=== PATIENT | female | born 1985 | race Caucasian/White ===

== ENCOUNTER 2021-10-20 09:05 | Emergency (ER) | payer BC ==
[~2021-10-20] VITALS: Ht 165.1 cm; Wt 50.0 kg
[2021-10-20] MEDS ORDERED: HYDROcodone/APAP 5/325MG 1 TAB TABLET PO ONE (10:00)
[2021-10-20] MEDS ORDERED: ceFAZolin SODIUM IV Push 1 GM VIAL. IVP ONE (10:00)
[2021-10-20] MEDS ORDERED: AMOXICILLIN/K CLAV 875/125MG TABLET. PO ONE (10:00)
[2021-10-20 10:11] VITALS: BP 134/68
[2021-10-20] MEDS ORDERED: NEOMY/BACITR/POLYMYXIN OINT PACKET. TP ONE (10:30)
--- NOTE | 2021-10-20 10:44 | RAD ---
XR HUMERUS_LT 2 VIEWS, XR HAND_LEFT 3 VIEWS, XR LT WRIST 3VIEWS, XR FOREARM_LEFT 2 VIEWS DATE: 10/20/2021 9:56 AM INDICATION: Dog bite attack, left forearm deformity, pain humerus wrist hands and finge COMPARISON: None. FINDINGS: Bones: There is no evidence of acute fracture or dislocation. Joints: The joint spaces are normal. Miscellaneous: No radiopaque foreign bodies. Forearm soft tissue gas is present, likely posttraumatic . IMPRESSION: No acute fracture or radiopaque foreign body in the left upper extremity radiographs which include th e humerus, forearm, wrist, and hand. Electronically signed by: Florencio Delarosa MD (10/20/2021 10:42 AM) [id number]
[2021-10-20] MEDS ORDERED: DIPHTH,PERTUSS(ACELL),TET TOX 0.5 ML DISP.SYRIN. VAX IM ONE (11:00)
[2021-10-20] MEDS ORDERED: RABIES VIRUS VACC PF 2.5 UNIT / 1 ML VIAL. VAX IM ONE (11:15)
[2021-10-20] MEDS ORDERED: RABIES IMMUNE GLOBULIN PF 300 UNIT/ML 5ML VIAL VAX IM ONE ×3 (11:15→15:15)
[2021-10-20] MEDS ORDERED: LIDOCAINE 2% Multi-Dose 20 ML VIAL. ONE (13:28)
[2021-10-20] MEDS ORDERED: LIDOCAINE 2% Multi-Dose 20 ML VIAL. IJ ONE (13:30)
[2021-10-20] MEDS ORDERED: AMOX1TAB61 PO (15:25)
[2021-10-20] MEDS ORDERED: IBUP-1007 PO (15:25)
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
== END 2021-10-20 15:30 | disposition home or self-care (01) ==
LOC: ER 09:05
DX: S01.83XA Puncture wound without foreign body of other part of head, initial encounter (principal); S51.031A Puncture wound without foreign body of right elbow, initial encounter; S51.832A Puncture wound without foreign body of left forearm, initial encounter; S71.132A Puncture wound without foreign body, left thigh, initial encounter; S81.832A Puncture wound without foreign body, left lower leg, initial encounter; Z20.3 Contact with and (suspected) exposure to rabies; W54.0XXA Bitten by dog, initial encounter; Y93.89 Activity, other specified; Y92.89 Other specified places as the place of occurrence of the external cause; Y99.8 Other external cause status
CPT/HCPCS: 12005; 73060; 73090; 73120; 73130; 90375; 90471; 90472; 90675; 90715; 96372; 96374; 99284; J0690

== ENCOUNTER 2021-10-23 09:18 | Emergency (ER) | payer BC ==
[~2021-10-23] VITALS: Ht 165.1 cm; Wt 49.0 kg
[~2021-10-23 09:18] MED LIST: AMOX1TAB61 PO; IBUP-1007 PO
--- NOTE | 2021-10-23 10:19 | PHYS DOC ---
Past Medical History Past Surgical History: , Other Additional Past Surgical Histo: Hernia and cataracts Smoking Status: Never Smoker Alcohol Use: None Adult General Chief Complaint Chief Complaint: MULTIPLE COMPLAINTS HPI HPI The patient is a 35-year-old female who presents for her second rabies vaccination following superficial dog bites all over her body sustained a few days ago. Patient was seen here at the time of her injury, injuries which re quired it were loosely approximated with suture, she received her first dose of rabies vaccine along with rabies immunoglobulin, and was discharged with Augmentin which she has been taking as prescribed. She states discomfort is well controlled to all sites and wounds are healing well. Review of Systems Review of Systems A 12 point review of systems was completed and was negative except where noted in HPI above. Current Medications Current Medications Current Medications Medications (Trade) Dose Ordered Sig/Jules Start Time Stop Time Status Last Admin Dose Admin Rabies Vaccine (Imovax Rabies 2.5 Unit / ml) 1 ml ONCE ONCE 10/23/21 10:30 10/23/21 10:31 Allergies Allergies Allergies Coded Allergies Type Severity Reaction Last Updated Verified No Known Drug Allergies 10/20/21 No Physical Exam Physical Exam 35-year-old female appearing nontoxic and in no acute distress. Head is normocephalic and atraumatic. Neck is supple and nontender. Oropharynx is moist. Lungs are clear to auscultation at all stations. There is a normal S1 and S2 without rubs or gallops and capillary refill is appropriate, less than 2 seconds globally. Abdomen is soft, nontender and nondistended. Skin is warm and dry without cyanosis, clubbing or edema. Psychiatrically, the patient demonstrates appropriate mood and affect and is alert. Evaluation of the extremities reveals BUEs and BLEs neurovascularly intact distally with strength 5 out of 5, sensation intact to light touch in all nerve distributions, radial, DP and PT pulses 2+ equal bilaterally, capillary refill less than 2 seconds, hands and feet warm and well-perfused. No dependent peripheral edema distally. No calf tenderness or swelling bilaterally. Homans test is negative bilaterally. There are numerous punctate dog bites with a few superficial lacerations located all over the arms and legs, at multiple sites. All are without surrounding erythema, without drainage and without tenderness to palpation. All appear to be healing appropriately. Current Patient Data Vital Signs Vital Signs Date Time Temp Pulse Resp B/P (MAP) Pulse Ox O2 Delivery O2 Flow Rate FiO2 10/23/21 09:27 98.4 103 16 124/67 (86) 99 Room Air 98.4 EKG EKG [] Radiology/Procedures Radiology/Procedures [] Course & Med Decision Making Course & Med Decision Making 35-year-old female here for rabies vaccination as scheduled. Taking Augmentin and dog bites appear to be healing appropriately. No evidence of emergency condition is identified. Will administer vaccine and discharge to follow-up as scheduled for the next vaccination in the series. All questions are answered. Dragon Disclaimer Dragon Disclaimer This electronic medical record was generated, in whole or in part, using a voice recognition dictation system. Departure Departure Impression: Primary Impression: Rabies, need for prophylactic vaccination against Additional Impression: Encounter for assessment of wound Disposition: HOME / SELF CARE / HOMELESS Condition: GOOD Referrals: GAEL ASCENCIO MD (PCP) Patient Instructions: Animal Bite Additional Instructions: Follow-up with us as scheduled for your next rabies vaccination and to have your sutures removed when it is time (they should be in for about 10 days in total). You may use ibuprofen and/or Tylenol as needed for any discomfort. You may apply Neosporin or other antibacterial ointment to your dog bites if you would like to prevent infection and continue the Augmentin oral antibiotic you were already prescribed to prevent infection. Return to the emergency department right away for worsening symptoms of any kind or with any other new symptoms of concern. Problem Qualifiers MARIETTA RAZA MD Oct 23, 2021 10:19
[2021-10-23] MEDS ORDERED: RABIES VIRUS VACC PF 2.5 UNIT / 1 ML VIAL. VAX IM ONE (10:30)
[2021-10-23 10:59] VITALS: BP 133/75
== END 2021-10-23 11:14 | disposition home or self-care (01) ==
LOC: ER 09:18
DX: S41.152A Open bite of left upper arm, initial encounter (principal); S41.151A Open bite of right upper arm, initial encounter; S81.852A Open bite, left lower leg, initial encounter; S81.851A Open bite, right lower leg, initial encounter; W54.0XXA Bitten by dog, initial encounter; Y93.89 Activity, other specified; Y92.89 Other specified places as the place of occurrence of the external cause; Y99.8 Other external cause status
CPT/HCPCS: 90471; 90675; 99283-25

== ENCOUNTER 2021-10-27 18:50 | Emergency (ER) | payer BC ==
[~2021-10-27] VITALS: Ht 165.1 cm; Wt 47.7 kg
[2021-10-27 19:05] VITALS: BP 115/61
[2021-10-27] MEDS ORDERED: RABIES VIRUS VACC PF 2.5 UNIT / 1 ML VIAL. VAX IM ONE (19:15)
--- NOTE | 2021-10-27 19:21 | PHYS DOC ---
Past Medical History Past Surgical History: , Other Additional Past Surgical Histo: Hernia and cataracts Smoking Status: Never Smoker Alcohol Use: None General Adult EDM: Chief Complaint: OTHER COMPLAINTS HPI: HPI: Patient is a 35 year old female presenting today for IBS vaccine. Patient had dog bites 10/20/2021 and has been coming to the ED for rabies vaccine. Today is day 7. She states her PCP will remove her stitches on Wednesday this week Review of Systems: Review of Systems: Constitutional: Visit for redness vaccine denies fever or chills. [] Musculoskeletal: Denies back pain or joint pain. [] Integument: Dog bites with stitches Neurologic: Denies headache, focal weakness or sensory changes. [] Psychiatric: Denies depression or anxiety. [] Heart Score: C/O Chest Pain: N/A Risk Factors: Risk Factors: DM, Current or recent (<one month) smoker, HTN, HLP, family history of CAD, obesity. Risk Scores: Score 0 - 3: 2.5% MACE over next 6 weeks - Discharge Home Score 4 - 6: 20.3% MACE over next 6 weeks - Admit for Clinical Observation Score 7 - 10: 72.7% MACE over next 6 weeks - Early Invasive Strategies Current Medications: Current Medications Medications (Trade) Dose Ordered Sig/Jules Start Time Stop Time Status Last Admin Dose Admin Rabies Vaccine (Imovax Rabies 2.5 Unit / ml) 1 ml ONCE ONCE 10/27/21 19:15 10/27/21 19:16 DC Allergies: Allergies: Allergies Coded Allergies Type Severity Reaction Last Updated Verified No Known Drug Allergies 10/20/21 No Physical Exam: PE: Constitutional: Well developed, well nourished, no acute distress, non-toxic appearance. [] Skin: Bilateral upper extremities, left lower extremity with well approximated bite sites with stitches no signs of infection Back: No tenderness, no CVA tenderness. [] Extremities: No tenderness, no cyanosis, no clubbing, ROM intact, no edema. [] Neurologic: Alert and oriented X 3, normal motor function, normal sensory function, no focal deficits noted. [] Psychologic: Affect normal, judgement normal, mood normal. [] EKG: EKG: [] Radiology/Procedures: Radiology/Procedures: [] Course & Med Decision Making: Course & Med Decision Making Pertinent Labs and Imaging studies reviewed. (See chart for details) This a 35-year-old female patient presented to the ED today for rabies vaccine from dog bite she sustained 10/20/2021, today is day seven. Vaccine administered. She has dog bite sites with stitches, she states her PCP will remove the stitches on Wednesday this week. Dragon Disclaimer: Dragon Disclaimer: This electronic medical record was generated, in whole or in part, using a voice recognition dictation system. Departure Departure Impression: Primary Impression: Rabies, need for prophylactic vaccination against Disposition: HOME / SELF CARE / HOMELESS Condition: STABLE Referrals: GAEL ASCENCIO MD (PCP) Follow up with ED or Ouptpatient department of [facility] for the last Rabies vaccine Patient Instructions: Rabies Vaccine suspension for injection Additional Instructions: Your last rabies vaccine is November 03, 2021. It can be done through [facility] outpatient area or through the emergency room. Follow up with your doctor on Wednesday to remove stitches. ANITA DONNELLY APRN Oct 27, 2021 19:21
== END 2021-10-27 19:27 | disposition home or self-care (01) ==
LOC: ER 18:50
DX: S41.152A Open bite of left upper arm, initial encounter (principal); S41.151A Open bite of right upper arm, initial encounter; S81.852A Open bite, left lower leg, initial encounter; K58.9 Irritable bowel syndrome, unspecified; W54.0XXA Bitten by dog, initial encounter; Y93.89 Activity, other specified; Y92.89 Other specified places as the place of occurrence of the external cause; Y99.8 Other external cause status
CPT/HCPCS: 90471; 90675; 99283-25

== ENCOUNTER → 2021-11-03 | Outpatient (CLI) | payer BC ==
[2021-10-27 19:05] VITALS: BP 115/61
[~2021-11-03] VITALS: Ht 167.6 cm; Wt 67.1 kg
[~2021-11-03] MED LIST changes: +RABIES VIRUS VACC PF 2.5 UNIT / 1 ML VIAL. VAX IM ONE
== END | disposition home or self-care (01) ==
LOC: OPS 16:47
PROVIDERS: ATTEND Nurse Practitioner Family
DX: S81.851D Open bite, right lower leg, subsequent encounter (principal); S81.852D Open bite, left lower leg, subsequent encounter; S41.152D Open bite of left upper arm, subsequent encounter; S41.151D Open bite of right upper arm, subsequent encounter; W54.0XXD Bitten by dog, subsequent encounter; X58.XXXD Exposure to other specified factors, subsequent encounter; Y93.89 Activity, other specified; Y92.89 Other specified places as the place of occurrence of the external cause
CPT/HCPCS: 90471; 90675; 96372